=== PATIENT | male | born 1990 | race Caucasian/White ===

== ENCOUNTER 2019-07-01 12:18 | Emergency (ER) | payer OTHER, SELFPAY ==
[2019-07-01 12:25] VITALS: TEMP 38.3; TEMP 40.6
[2019-07-01 12:35] VITALS: BP 98/62; PULSE 113; RESP 16; TEMP 37.3; O2SAT 100
--- NOTE | 2019-07-01 12:59 | PC.NURSE ---
Temp recheck skin 105.2. Taken X2.
--- NOTE | 2019-07-01 12:59 | ED.URI ---
HPI - URI/Sore Throat General Chief Complaint: Upper Respiratory Infection Stated Complaint: Fever/cough Time Seen by Provider: 07/01/19 12:59 Source: patient and RN notes reviewed Mode of arrival: ambulatory Limitations: no limitations History of Present Illness HPI Narrative: 28-year-old male accompanied by presents to express care with complaints of fever, chills, nausea with vomiting. headache. nasal drainage,cough with no shortness of breath for past 24 hours. Patient denies any sore throat or body aches, he is pale and states that he feels awful, further informs that child had influenza last week. Patient had temporal fever of 105F with oral temp of 102.4 obtained by this provider, patient has not taken any fever reducing medication today did take some Dayquil earlier today, patient received Tylenol 100mg orally while in express care.Lungs clear tpo ascultation with no tachypnea or any accessory muscle use noted, SAO2 100% on room air. MD elicited complaint: fever, cough, rhinorrhea, nasal congestion and other (headache, nausea and vomiting) Onset (ago): day(s) (1) Consistency: progressively worsening Severity: moderate Description of mucous: clear Able to tolerate fluids by mouth: Yes Exacerbating factors: exertion and deep breaths Relieving factors: nothing Context: sick contacts Associated symptoms: fever, headache, rhinorrhea, nasal congestion and cough Treatments prior to arrival: other (Dayquil) Related Data Home Medications Medication Instructions Recorded Confirmed Vicks DayQuil Cough 07/01/19 Allergies Allergy/AdvReac Type Severity Reaction Status Date / Time No Known Allergies Allergy Mild Verified 02/22/10 16:35 Review of Systems Review of Systems: Narrative: CONSTITUTIONAL: Positive fever, chills, or sweats. EYES: Denies visual changes, redness, or discharge. ENT: Positive rhinorrhea, congestion, no sore throat, or otalgia. CARDIOVASCULAR: Denies chest pain, palpitations, or edema. RESPIRATORY: positive cough denies dyspnea. GASTROINTESTINAL: Denies abdominal pain,positive nausea, vomiting, no diarrhea. GENITOURINARY: Denies dysuria or hematuria. SKIN: Denies rash or itching. MUSCULOSKELETAL: Denies back pain, joint pain,positive body aches NEUROLOGIC: positive headache,no numbness, or weakness. PSYCHIATRIC: Denies anxiety or depression. All systems reviewed & are unremarkable except as noted in HPI and below PMFSH Past Medical History Medical History (Updated 07/03/19 @ 14:11 by Aviva Lyles NP) No significant past medical history Social History Social History (Updated 07/03/19 @ 14:12 by Aviva Lyles NP) Smoking status: Never smoker Alcohol intake: unknown Living arrangements: with family Additional occupation/education comments: [employer] Gender identity (if verbalized by the patient): Male Comments At time of signature, agree with nursing past medical, surgical, social history. There is no relevant family history pertinent to the presenting complaint Exam Narrative: Exam Narrative: GENERAL Ill-appearing, pale,well-nourished, and in no acute distress. HEAD: Normocephalic, atraumatic. EYES: PERRLA and EOMI. ENT: Nares red, clear rhinorrhea no epistaxis. Mucous membranes moist.TM's normal with good light reflex, throat red, no lesions or exudates, no acute tonsil enlargement, some post nasal drainage noted. NECK: Supple. no lymphadenopathy CHEST: Clear to auscultation. No respiratory distress. dry cough, SAO2 100% on room air, denies any shortness of breath HEART: Regular rate and rhythm. No murmur heard. Normal peripheral pulses. ABDOMEN: Soft, nontender, nondistended, normal active bowel sounds.nausea with vomiting no abdominal pain EXTREMITIES: Normal range of motion. No edema. SKIN: Warm, dry, no rash. NEURO: No focal deficits. Alert and oriented x3. Course Vital Signs Vital signs: Vital Signs Temperature 38.3 C H 07/01/19 12:25 Tem
[2019-07-01 13:15] VITALS: TEMP 40.7
--- NOTE | 2019-07-01 13:18 | PC.NURSE ---
Tylenol was given per order , unable to chart
--- NOTE | 2019-07-01 13:19 | PC.NURSE ---
PATIENT'S TEMP VARIABLE DURING ASSESSMENT 99.1 ORAL/105.0 SKIN. RETOOK TEMP 10 MIN. LATER 100.9 ORAL/105.5 SKIN
[2019-07-01 14:04] VITALS: PULSE 112; RESP 20; TEMP 40.4
== END 2019-07-01 14:06 | disposition home or self-care (01) ==
PROVIDERS: Emergency Provider Registered Nurse
DX: J10.1 Influenza due to other identified influenza virus with other respiratory manifestations (principal); R11.2 Nausea with vomiting, unspecified
CPT/HCPCS: 87081; 87804; 87880; 99203; A9270; G0463